=== PATIENT | female | born 1955 ===

== ENCOUNTER 2016-08-05 05:58 | Observation (INO) | payer MEDICAID ==
[2016-08-02 10:05] VITALS: BMI 32.2
[2016-08-05] MEDS ORDERED: Lactated Ringer's 1,000 ML IV ONE ×2 (06:58→08:00)
[2016-08-05] MEDS ORDERED: Propofol 10 mg/ml Inj (20 ML) ONE ×2 (07:04→10:25)
[2016-08-05] MEDS ORDERED: ePHEDrine 50 mg/ml Inj ONE (07:05)
[2016-08-05] MEDS ORDERED: Midazolam 2 MG/2 ML VIAL ONE (07:05)
[2016-08-05] MEDS ORDERED: Neostigmine Methylsulfate 2 MG/2 ML ML IV ONE (07:05)
[2016-08-05] MEDS ORDERED: Succinylcholine 200 mg/10 ml Inj IV ONE (07:05)
[2016-08-05] MEDS ORDERED: Bupivacaine 0.5% Inj(30mL) ONE (07:15)
[2016-08-05] MEDS ORDERED: Rocuronium 10 mg/ml (5 ml) ONE (07:29)
[2016-08-05] MEDS ORDERED: Dexamethasone 4 mg/1 ml ONE (08:24)
[2016-08-05] MEDS ORDERED: SULFANILAMIDE (AVC) VAG CREAM VG ONE (10:17)
[2016-08-05] MEDS ORDERED: Lactated Ringer's 1,000 ML IV SCH (10:51)
[2016-08-05] MEDS ORDERED: HYDROmorphone 0.5 mg/0.5 ml ISec IVP PRN (10:51)
[2016-08-05] MEDS ORDERED: Oxycodone/Acetaminophen 5/325 mg Tab PO PRN (14:32)
[2016-08-05] MEDS: Lactated Ringer's 1,000 ML IV SCH (15:28)
--- NOTE | 2016-08-05 15:35 | OP ---
PROCEDURE DATE: 08/05/2016 PREOPERATIVE DIAGNOSES: Uterine prolapse, cystocele. POSTOPERATIVE DIAGNOSES: Uterine prolapse, cystocele. OPERATION PERFORMED: Robotic hysterectomy, uterosacral ligament plication, cystoscopy, anterior repa ir. SURGEON: Abeba Enciso MD. CHICKEN CLEANER: Dr. Julián Espinoza. ANESTHESIA: General administered by Dr. Bain. ESTIMATED BLOOD LOSS: 50 mL. The patient put out approximately 700 mL of clear urine. The patient received 1400 mL of D5LR intrao peratively. OPERATIVE FINDINGS: A prolapsed uterus, cystocele, dome of the bladder was noted to be intact, bilat eral ureteral efflux of urine. Dr. Espinoza was the assistant paralegal in the procedure. He was helpful in obtaining hemostasis, creating exposur e and closure of the patient. The procedure would not have been possible without his assistance. PROCEDURE: After informed consent was obtained, the patient was taken to the operating room where sp inal anesthesia, the patient was taken to the operating room where general anesthesia was noted to be adequate. The patient was placed in a dorsal lithotomy position. She was prepped and draped in the usual sterile fashion. Attention was then turned to the vagina where the cervix was identified, gra sped with a single-tooth tenaculum and gently dilated with the uterine dilators. A PK uterine manipu lator was inserted into the uterine cavity as a means to manipulate the uterus. Attention was then t urned to the bladder where a Wheeler catheter was inserted to monitor the patient's urinary output. At tention was then turned to the abdomen where approximately 2 cm superior to the umbilicus Marcaine wa s infused and an 8 mm incision was made. A Veress needle was then introduced into the abdominal cavi ty placement was confirmed with a fluid-filled syringe. The abdomen was then insufflated to 50 mmHg. An 8 mm robotic port was introduced into the abdominal cavity and placement was confirmed with the laparoscope. Attention was then turned to 20 cm right and lateral to the umbilicus, Marcaine was inf used and an 8 mm incision was made. The port was introduced into the abdominal cavity. Attention wa s then turned to approximately 10 cm right and lateral to the umbilicus, Marcaine was infused, 8 mm i ncision was made and a robotic port was introduced under direct visualization. Attention was then tu rned to the left side, an 8 mm incision was made and a robotic port was introduced under direct visua lization. Approximately 10 cm left and lateral to the umbilicus, 5 mm incision was made and an tho tant port was introduced into the abdominal cavity. The instruments used for the operation were PK d issector, scissor, ProGrasp, Justin SutureCut The patient was then placed in steep Trendelenburg. The table was lowered and the robot was docked without complication. The instruments were inserted into the abdominal cavity and then proceeded to break scrub and proceed to the surgical console. Attentio n was then turned to the right round ligament, it was serially coagulated and transected with the sci ssors. The bladder flap was created using the PK dissector, undermining the peritoneum, transecting with the scissor down to the level of the VCare cup anteriorly. The uteroovarian ligament was then s erially coagulated and transected with the scissor. The posterior peritoneum was undermined with the PK dissector. The uterosacral ligament was coagulated and the posterior aspect of the peritoneum wa s undermined with the PK dissector and cut with the scissors. The uterine artery was then skeletoniz ed and it was serially coagulated and transected with scissors at the level of the VCare cup. Attent ion was then turned to the left side of the abdomen. The round ligament was identified, serially coa gulated and transected with the scissor. The uteroovarian ligament was then serially coagulated and transected with the scissors. The uterine arteries were skeletonized bilaterally and serially coagul ated with the PK dissector and transected with a scissors. The VCare cup was then identified anterio rly, posteriorly and laterally. A colpotomy was made anteriorly. The cervix and uterus were then am putated from the vagina. The specimen was delivered vaginally. The vaginal cuff was closed with a 2 -0 barbed suture in a running fashion. The uterosacral ligament suspension was performed using Holt- Gregory suture. The ureters were identified bilaterally. Care was taken not to kink the ureters. The r ight uteroovarian ligament was grasped with the Holt-Gregory suture and the vaginal cuff was then ligated to the right uterosacral ligament. A similar procedure was performed on the left. All needles were then removed from the abdomen. The abdomen was copiously irrigated. Irrigant was removed with a camp ction device. Hemostasis was noted. All instruments were then removed from the abdomen. The robot was then docked successfully. Attention was then turned to the vagina. The cystocele was identified and Allis cup was placed approximately 1 cm below the urethral meatus, 2 additional Allis clamps wer e placed along the bladder. The vaginal mucosa was then infiltrated with normal saline. A linear in cision was then made with a scalpel. The bladder was then dissected off the vaginal mucosa using bot h sharp and blunt dissection. The fascia was then identified and the bladder was imbricated with 2-0 Vicryl in an interrupted fashion. Four sutures were placed. The vaginal mucosa was trimmed and the vaginal mucosa was closed with 2-0 Vicryl in a running fashion. Hemostasis was noted. Due to the juan lambert's previous , extensive bladder manipulation, cystoscopy was performed. The dome of t darrion bladder was noted to be intact. No hematuria and there was bilateral efflux of urine. All instru ments were then removed from the vagina. The abdominal incisions were closed with Dermabond and 3-0 Biosyn. All sponge, lap, needle, and instrument counts were correct x 2 and the patient was taken to recovery room in awake and stable condition. Lainey Enciso MD cc: [phone] TT: 08/05/2016 15:34:15 kumar
[2016-08-05] MEDS ORDERED: cefOXitin Sodium 1 GM in Sodium Chloride 0.9% 100 ML IVPB SCH (17:00)
[2016-08-05] MEDS: cefOXitin Sodium 1 GM in Dextrose 5% In Water 50 ML IVPB SCH (18:13)
[2016-08-06] MEDS: cefOXitin Sodium 1 GM in Dextrose 5% In Water 50 ML IVPB SCH ×2 (00:38→08:14)
[2016-08-06 00:52] VITALS: RESP 18
[2016-08-06] MEDS: Lactated Ringer's 1,000 ML IV SCH (05:11)
[2016-08-06 08:19] LABS: BASO % 0.1 % (0.0-2.0); HEMATOCRIT 35.4 % (34.0-47.0); LYMPH # 1.2 K/uL (1.0-4.3); LYMPH % 8.5 % (20.0-40.0); MEAN CELL VOLUME 87.2 fl (81.0-99.0); MEAN CORPUSCULAR HEMOGLOBIN 29.1 pg (27.0-31.0); MEAN CORPUSCULAR HGB CONC 33.4 g/dL (33.0-37.0); MEAN PLATELET VOLUME 7.5 fl (7.2-11.7); MONO % 6.9 % (0.0-10.0); NEUT # 11.9 K/uL (1.8-7.0); NEUT % 84.5 % (50.0-75.0); PLATELET COUNT 274 K/uL (130-400); RED CELL DISTRIBUTION WIDTH 13.6 % (11.5-14.5); WHITE BLOOD COUNT 14.1 K/uL (4.8-10.8)
[2016-08-06 08:40] VITALS: BP 99/60; O2SAT 94
[2016-08-06 11:16] LABS: NEUTROPHIL 79 % (42-75); TOTAL CELLS COUNTED 100
--- NOTE | 2016-08-06 12:26 | CP.PCM.PN ---
Subjective - Date & Time of Evaluation Date of Evaluation: 08/06/16 Time of Evaluation: 12:23 - Subjective Subjective: 60 yo s/p RATAH, BSO and anterior repair, POD #1, recovering well. Patient denies CP, no SOB, no N/V, tolerating PO diet, abdominal pain tolerable with meds, vaginal packing removed and no active vaginal bleeding noted, ambulating well, +flatus, voiding well Objective - Vital Signs/Intake and Output Vital Signs (last 24 hours): Temp Pulse Resp BP Pulse Ox 98.5 F 76 18 99/60 L 94 L 08/06/16 08:25 08/06/16 08:25 08/06/16 08:25 08/06/16 08:25 08/06/16 08:25 Intake and Output: 08/06/16 08/06/16 06:59 18:59 Intake Total 1850 Output Total 1900 Balance -50 - Medications Medications: Current Medications Ondansetron HCl (Zofran Inj) 4 mg IVP ONCE PRN PRN Reason: Nausea/Vomiting Oxycodone/Acetaminophen (Percocet 5/325 Mg Tab) 1 tab PO Q4 PRN PRN Reason: Pain, Mild (1-3) Stop: 08/08/16 14:33 - Labs Labs: 08/06/16 06:00 - Eye Exam Eye Exam: Normal appearance - Respiratory Exam Respiratory Exam: NORMAL BREATHING PATTERN - Cardiovascular Exam Cardiovascular Exam: REGULAR RHYTHM - GI/Abdominal Exam GI & Abdominal Exam: Normal Bowel Sounds Additional comments: soft, non-distended, non-tender, bandages over incision clean/dry, no rebound - Extremities Exam Extremities Exam: Normal Inspection Assessment and Plan - Assessment and Plan (Free Text) Plan: A/P 60 yo s/p RATAH, BSO, anterior repair 1. Patient recovering well, ready for discharge 2. Discharge instructions reviewed with patient
[2016-08-06 12:37] VITALS: PULSE 79; TEMP 99.1
== END 2016-08-06 13:40 | disposition home or self-care (01) ==
LOC: H.OPSURG 05:58 → H.PEDS 14:32 → UNDOADMIN 15:02 → H.PEDS 15:02
PROVIDERS: ADMIT Obstetrics & Gynecology Gynecology; ATTEND Obstetrics & Gynecology Gynecology
DX: N81.4 Uterovaginal prolapse, unspecified (principal); D25.0 Submucous leiomyoma of uterus; N88.8 Other specified noninflammatory disorders of cervix uteri

== ENCOUNTER 2017-08-03 17:18 | Emergency (ER) | payer MEDICAID ==
[2017-08-03 17:19] VITALS: BMI 32.2
--- NOTE | 2017-08-03 19:24 | ED PDOC ---
Upper Extremity Pain/Injury Time Seen by Provider: 08/03/17 18:19 Chief Complaint (Nursing): Finger,Hand,&Wrist Chief Complaint (Provider): Right Hand History Per: Patient History/Exam Limitations: no limitations Onset/Duration Of Symptoms: Other (prior to arrival) Current Symptoms Are (Timing): Still Present Additional Complaint(s): 61 y/o female with no significant pmhx, who presents to the ED for evaluation of right hand dread. Patient states she was pushing a stack of 2 boxes when the top box fell off and her ring and pinky fingers got stuck between the boxes. She states the fingers were a bit bent but she "popped" them back into place. She states she initially felt fine, but is not complaining of localized pain and swelling to the MCP of the right 5th finger. PMD: Yasmani Desai Past Medical History Reviewed: Historical Data, Nursing Documentation, Vital Signs Vital Signs: Last Vital Signs Temp 98.3 F 08/03/17 17:40 Pulse 60 08/03/17 17:40 Resp 16 08/03/17 17:40 BP 107/66 08/03/17 17:40 Pulse Ox 98 08/03/17 17:40 - Medical History PMH: Anemia, Arthritis (JOINT HANDS AND KNEES), Asthma, Bronchitis (JAN 2016), Hypothyroidism Denies: Chronic Kidney Disease - Surgical History Surgical History: No Surg Hx - Family History Family History: States: Unknown Family Hx - Home Medications Home Medications: Ambulatory Orders Medication Instructions Recorded Acetaminophen [Extra Strength 500 mg PO DAILY 08/05/16 Non-Aspirin] DiphenhydrAMINE [Benadryl] 25 mg PO DAILY 08/05/16 Levothyroxine [Synthroid] 50 mcg PO DAILY 08/05/16 Nabumetone [Nabumetone] 500 mg PO DAILY 08/05/16 - Allergies Allergies/Adverse Reactions: Allergies Allergy/AdvReac Type Severity Reaction Status Date / Time carrot Allergy ITCHING Verified 08/03/17 17:40 tomato AdvReac ITCHING Verified 08/03/17 17:40 Review of Systems ROS Statement: Except As Marked, All Systems Reviewed And Found Negative Musculoskeletal: Positive for: Hand Pain (right) Physical Exam - Reviewed Nursing Documentation Reviewed: Yes Vital Signs Reviewed: Yes - Physical Exam Appears: Positive for: Well, Non-toxic, No Acute Distress Head Exam: Positive for: ATRAUMATIC, NORMAL INSPECTION, NORMOCEPHALIC Skin: Positive for: Normal Color, Warm, DRY Eye Exam: Positive for: Normal appearance ENT: Positive for: Normal ENT Inspection Neck: Positive for: Normal, Painless ROM Respiratory: Negative for: Accessory Muscle Use, Respiratory Distress Pulses-Radial (L): 2+ Pulses-Radial (R): 2+ Extremity: Positive for: Normal ROM, Tenderness (5th MCP), Swelling. Negative for: Deformity Neurologic/Psych: Positive for: Alert, Oriented - ECG O2 Sat by Pulse Oximetry: 98 (RA) Pulse Ox Interpretation: Normal Medical Decision Making Medical Decision Makin:41 Plan: --Right hand X-Ray Hand x-ray without acute abnormalities. Scribe Attestation: Documented by Brock Enriquez, acting as a scribe for Vandana Sanon PA-C. Provider Scribe Attestation: All medical record entries made by the Scribe were at my direction and personally dictated by me. I have reviewed the chart and agree that the record accurately reflects my personal performance of the history, physical exam, medical decision making, and the department course for this patient. I have also personally directed, reviewed, and agree with the discharge instructions and disposition. Disposition - Clinical Impression Clinical Impression: Finger sprain - Disposition Disposition: Routine/Home Disposition Time: 19:34 Condition: STABLE Additional Instructions: Ice, elevation, naproxen. Instructions: Finger Sprain (DC) Forms: [employer] (Telugu)
[2017-08-03 20:20] VITALS: BP 110/75; PULSE 71; RESP 15; TEMP 98.2; O2SAT 100
--- NOTE | 2017-08-04 08:27 | RAD ---
PROCEDURE: Right Hand Radiographs. HISTORY: pain MCP, 5th COMPARISON: None. FINDINGS: BONES: No acute fracture or destructive bony lesion identified. JOINTS: No dislocation or subluxation. Advanced degenerative joint disease seen throughout the distal interphalangeal joints, particularly the index and long fingers DIP joints as well as the basal joint with lesser degenerative changes seen throughout the remaining joints of the right hand. SOFT TISSUES: Normal. OTHER FINDINGS: None. IMPRESSION: No acute fracture or dislocation identified. 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 Lesser degenerative changes are seen throughout the remaining joints of the right hand including incidentally the wrist joints.
== END 2017-08-03 20:21 | disposition home or self-care (01) ==
LOC: H.ER 17:18
DX: S63.91XA Sprain of unspecified part of right wrist and hand, initial encounter (principal); W22.8XXA Striking against or struck by other objects, initial encounter; Y92.89 Other specified places as the place of occurrence of the external cause; E03.9 Hypothyroidism, unspecified; J45.909 Unspecified asthma, uncomplicated

== ENCOUNTER 2017-08-08 00:17 | Inpatient (IN) | payer MEDICAID ==
[2017-08-08 00:18] VITALS: BMI 32.2
[2017-08-08] MEDS ORDERED: Sodium Chloride 0.9% 1,000 ML IV STA (03:29)
--- NOTE | 2017-08-08 03:47 | ED PDOC ---
HPI: Abdomen Time Seen by Provider: 08/08/17 03:13 Chief Complaint (Nursing): GI Problem Chief Complaint (Provider): abdominal pain History Per: Patient History/Exam Limitations: no limitations Onset/Duration Of Symptoms: Days (4) Current Symptoms Are (Timing): Still Present Location Of Pain/Discomfort: LLQ, Other (left flank) Quality Of Discomfort: Sharp, "Pain" Associated Symptoms: Nausea, Vomiting Additional History Per: Patient Additional Complaint(s): 61 y/o female presents for evaluation of worsening left-sided abdominal pain x 4 days. Associated nausea, vomiting. Denies fever, chest pain, shortness of breath, palpitations, changes in bowel movements, urinary symptoms. Past Medical History Reviewed: Historical Data, Nursing Documentation, Vital Signs Vital Signs: Last Vital Signs Temp 98.0 F 08/08/17 01:36 Pulse 75 08/08/17 01:36 Resp 16 08/08/17 01:36 BP 172/100 H 08/08/17 01:36 Pulse Ox 97 08/08/17 03:48 - Medical History PMH: Anemia, Arthritis (JOINT HANDS AND KNEES), Asthma, Bronchitis (JAN 2016), Hypothyroidism Denies: Chronic Kidney Disease - Surgical History Surgical History: No Surg Hx - Family History Family History: States: Unknown Family Hx - Home Medications Home Medications: Ambulatory Orders Medication Instructions Recorded Acetaminophen [Extra Strength 500 mg PO DAILY 08/05/16 Non-Aspirin] DiphenhydrAMINE [Benadryl] 25 mg PO DAILY 08/05/16 Levothyroxine [Synthroid] 50 mcg PO DAILY 08/05/16 Nabumetone [Nabumetone] 500 mg PO DAILY 08/05/16 - Allergies Allergies/Adverse Reactions: Allergies Allergy/AdvReac Type Severity Reaction Status Date / Time carrot Allergy ITCHING Verified 08/03/17 17:40 tomato AdvReac ITCHING Verified 08/03/17 17:40 Review of Systems ROS Statement: Except As Marked, All Systems Reviewed And Found Negative Gastrointestinal: Positive for: Nausea, Vomiting, Abdominal Pain Physical Exam - Reviewed Nursing Documentation Reviewed: Yes Vital Signs Reviewed: Yes - Physical Exam Appears: Positive for: Well, Non-toxic, No Acute Distress Head Exam: Positive for: ATRAUMATIC, NORMAL INSPECTION, NORMOCEPHALIC Skin: Positive for: Normal Color Eye Exam: Positive for: Normal appearance ENT: Positive for: Normal ENT Inspection Cardiovascular/Chest: Positive for: Regular Rate, Rhythm Respiratory: Positive for: Normal Breath Sounds Gastrointestinal/Abdominal: Positive for: Bowel Sounds, Soft, Tenderness (left flank) Back: Positive for: Normal Inspection Extremity: Positive for: Normal ROM Neurologic/Psych: Positive for: Alert, Oriented - Laboratory Results Result Diagrams: 08/08/17 04:13 08/08/17 04:13 - ECG O2 Sat by Pulse Oximetry: 97 - Progress ED Course And Treament: labs, urine, CT renal protocol, IV fluids, IV toradol, IV zofran Disposition - Clinical Impression Clinical Impression: Abdominal pain - Disposition Referrals: Yasmani Desai MD [Primary Care Provider] - Disposition Time: 06:00 Condition: STABLE Patient Signed Over To: Biju Piña Handoff Comments: pending CT, re-eval
[2017-08-08 04:17] LABS: BASO # 0.1 K/uL (0.0-0.2); BASO % 0.4 % (0.0-2.0); EOS % 0.4 % (0.0-4.0); HEMOGLOBIN 14.1 g/dL (12.0-16.0); LYMPH # 0.8 K/uL (1.0-4.3); LYMPH % 6.2 % (20.0-40.0); MEAN CORPUSCULAR HEMOGLOBIN 29.5 pg (27.0-31.0); MEAN CORPUSCULAR HGB CONC 33.9 g/dL (33.0-37.0); MEAN PLATELET VOLUME 7.4 fl (7.2-11.7); MONO # 0.8 K/uL (0.0-0.8); MONO % 5.9 % (0.0-10.0); NEUT # 11.3 K/uL (1.8-7.0); NEUT % 87.1 % (50.0-75.0); PLATELET COUNT 283 K/uL (130-400); RBC 4.79 Mil/uL (3.80-5.20)
[2017-08-08 04:21] LABS: SQUAMOUS EPITHIAL 2 /hpf (0-5); URINE BILIRUBIN NEGATIVE (NEGATIVE); URINE BLOOD LARGE (NEGATIVE); URINE CLARITY CLOUDY (Clear); URINE COLOR YELLOW (YELLOW); URINE GLUCOSE (UA) 50 mg/dL (Normal); URINE LEUKOCYTE ESTERASE MOD Leu/uL (Negative); URINE PROTEIN 100 mg/dL (NEGATIVE); URINE UROBILINOGEN 0.2-1.0 mg/dL (0.2-1.0)
[2017-08-08 04:31] LABS: ALB/GLOB RATIO 1.4 (1.0-2.1); ALBUMIN 4.4 g/dL (3.5-5.0); ALT/SGPT 35 U/L (9-52); AST/SGOT 23 U/L (14-36); BLOOD UREA NITROGEN 15 mg/dl (7-17); CALCIUM 8.9 mg/dL (8.4-10.2); GFR AFRICAN-AMERICAN > 60; GFR NON-AFRICAN AMERICAN > 60
[2017-08-08 07:05] LABS: BANDS 2 % (0-2); LYMPHOCYTE 6 % (20-50); MONOCYTE 2 % (0-10); NEUTROPHIL 89 % (42-75); REACTIVE LYMPHOCYTES 1 % (0-0); TOTAL CELLS COUNTED 100
[2017-08-08 07:06] LABS: PLATELET ESTIMATE NORMAL (NORMAL)
--- NOTE | 2017-08-08 07:17 | CT ---
EXAM: CT Abdomen and Pelvis Without Intravenous Contrast EXAM DATE/TIME: 08/08/2017 4:27 AM CLINICAL HISTORY: 61 years old, female; Pain; Abdominal pain; Flank; Left; Additional info: Left flank pain, vomiting TECHNIQUE: Axial computed tomography images of the abdomen and pelvis without intravenous contrast. All CT scans at this facility use one or more dose reduction techniques, viz.: automated exposure control; ma/kV adjustment per patient size (including targeted exams where dose is matched to indication; i.e. head); or iterative reconstruction technique. Coronal and sagittal reformatted images were created and reviewed. COMPARISON: No relevant prior studies available. FINDINGS: Lung bases: Mild dependent changes in both lung bases. ABDOMEN: Liver: Well defined and homogeneous mass in the posterior lateral right upper abdomen, exerting extrinsic mass effect on adjacent liver. Subtle decreased attenuation relative to liver parenchyma. Measures 9 x 3 by 7.5 cm in AP, transverse and craniocaudal dimensions. Tiny calcification at its medial margin. Inseparable from the peritoneum. Liver appears unremarkable. Gallbladder and bile ducts: Unremarkable. No calcified stones. No ductal dilation. Pancreas: Unremarkable. No ductal dilation. Spleen: Unremarkable. No splenomegaly. Adrenals: Unremarkable. No mass. Kidneys and ureters: Moderate left hydronephrosis and hydroureter secondary to a 4 mm calculus at ureterovesical junction. Stomach and bowel: Unremarkable. No dilatation of small or large bowel. No mucosal thickening. PELVIS: Appendix: Normal. Bladder: Unremarkable. No stones. Reproductive: Hysterectomy. ABDOMEN and PELVIS: Intraperitoneal space: See above. No free air. No free fluid or fluid collection. Bones/joints: Spondylosis, degenerative disc disease and facet joint arthrosis lumbar spine. Spinal stenosis at L4-5. Soft tissues: Unremarkable. Vasculature: Unremarkable. No abdominal aortic aneurysm. Lymph nodes: No enlarged lymph nodes. IMPRESSION: 1. Left UVJ calculus with moderate hydronephrosis and hydroureter. 2. Almost isodense mass posterior lateral right upper abdomen with extrinsic mass effect on adjacent right lobe of liver. Differential diagnosis to include peritoneal mass/neoplasm, accessory hepatic lobe, old or subacute hematoma. Recommend additional evaluation with CT with IV contrast or MRI
--- NOTE | 2017-08-08 07:35 | ED PDOC ---
- Laboratory Results Result Diagrams: 08/10/17 06:10 08/10/17 06:10 - ECG O2 Sat by Pulse Oximetry: 97 (RA) Pulse Ox Interpretation: Normal Medical Decision Making Medical Decision Makin:00 AM Patient signed out to me by Dr. Piña pending abdomen results. 0800 CT findings reviewed. Monitoring the patient for pain resolution. 0900 Patient reports recurrent pain. Admit to intractable pain. Dx UTI, obstructive ureteral stones. [address] Miranda covering for Dr Fabi Robledo) for admission. Scribe Attestation: Documented by Shaquille Piña acting as a scribe for Harrison Salvador MD. Scribe Attestation: All medical record entries made by the Scribe were at my direction and personally dictated by me. I have reviewed the chart and agree that the record accurately reflects my personal performance of the history, physical exam, medical decision making, and the department course for this patient. I have also personally directed, reviewed, and agree with the discharge instructions and disposition. Disposition Discussed With : Aj Miranda Doctor Will See Patient In The: Hospital Counseled Patient/Family Regarding: Studies Performed, Diagnosis - Clinical Impression Clinical Impression: Abdominal pain, Ureteral calculus, UTI (urinary tract infection), Abdominal mass - POA Present On Arrival: None - Disposition Disposition: Admitted as In-Patient Disposition Time: 10:00 Condition: FAIR
[2017-08-08] MEDS ORDERED: cefTRIAXone (Rocephin) 1 gm Inj ONE (11:41)
[2017-08-08] MEDS ORDERED: Morphine 4 MG/ML VIAL ONE (11:43)
[2017-08-08] MEDS ORDERED: Potassium Chloride 20 mEq ER Tab PO ONE ×2 (12:50→13:55)
[2017-08-08] MEDS: Sodium Chloride 0.9% 1,000 ML IV SCH ×2 (13:56→21:10)
[2017-08-09] MEDS: Sodium Chloride 0.9% 1,000 ML IV SCH ×2 (01:29→10:31)
[2017-08-09 06:15] LABS: BASO # 0.1 K/uL (0.0-0.2); EOS # 0.3 K/uL (0.0-0.7); EOS % 4.4 % (0.0-4.0); HEMOGLOBIN 11.6 g/dL (12.0-16.0); LYMPH # 1.6 K/uL (1.0-4.3); LYMPH % 24.6 % (20.0-40.0); MEAN CELL VOLUME 87.4 fl (81.0-99.0); MEAN CORPUSCULAR HEMOGLOBIN 28.9 pg (27.0-31.0); MEAN CORPUSCULAR HGB CONC 33.1 g/dL (33.0-37.0); MEAN PLATELET VOLUME 7.4 fl (7.2-11.7); MONO # 0.5 K/uL (0.0-0.8); NEUT # 4.1 K/uL (1.8-7.0); RBC 3.99 Mil/uL (3.80-5.20); RED CELL DISTRIBUTION WIDTH 13.9 % (11.5-14.5); WHITE BLOOD COUNT 6.5 K/uL (4.8-10.8)
[2017-08-09] MEDS: Levothyroxine 50 MCG TAB PO SCH (06:27)
[2017-08-09 06:41] LABS: ALB/GLOB RATIO 1.1 (1.0-2.1); ALBUMIN 3.1 g/dL (3.5-5.0); ALT/SGPT 29 U/L (9-52); AST/SGOT 18 U/L (14-36); BLOOD UREA NITROGEN 14 mg/dl (7-17); CALCIUM 8.2 mg/dL (8.4-10.2); GFR AFRICAN-AMERICAN > 60; GFR NON-AFRICAN AMERICAN > 60
--- NOTE | 2017-08-09 07:38 | CP.PCM.HP ---
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 She denies fever, chills, vesical tenesmus, rectal tenesmus, rectal bleeding, dysuria, abd trauma. Reports one episode of renal colic in 1996 when she passed a renal stone. Patient seen and examined bedside with Dr Miranda. Patient reports she needed toradol last night and notice facial rash and itching. Denies hx/o NSAID meds or toradol rash before. Will stop toradol, will give Percocet for mod pain. Present on Admission - Present on Admission Any Indicators Present on Admission: No History of DVT/PE: No History of Uncontrolled Diabetes: No Urinary Catheter: No Decubitus Ulcer Present: No Review of Systems - Review of Systems All systems: reviewed and no additional remarkable complaints except - Gastrointestinal Gastrointestinal: Abdominal Pain - Genitourinary Additional comments: hematuria Past Patient History - Past Medical History & Family History Past Medical History?: Yes - Past Social History Smoking Status: Never Smoked - CARDIAC Hx Cardiac Disorders: No - PULMONARY Hx Respiratory Disorders: Yes - NEUROLOGICAL Hx Neurological Disorder: Yes Other/Comment: NUMBENESS BOTH HAND FOR CARPAL TUNNEL SYNDROME AND LEFT LEG - HEENT Hx HEENT Problems: Yes Hx Glaucoma: Yes - RENAL Hx Chronic Kidney Disease: No - ENDOCRINE/METABOLIC Hx Endocrine Disorders: Yes Other/Comment: pre DM as per patient - HEMATOLOGICAL/ONCOLOGICAL Hx Anemia: Yes - INTEGUMENTARY Hx Dermatological Problems: No - MUSCULOSKELETAL/RHEUMATOLOGICAL Hx Falls: No - GASTROINTESTINAL Hx Gastrointestinal Disorders: No - GENITOURINARY/GYNECOLOGICAL Hx Genitourinary Disorders: No - PSYCHIATRIC Hx Substance Use: No - SURGICAL HISTORY Hx Surgeries: Yes Other/Comment: X2 - ANESTHESIA Hx Anesthesia: Yes Hx Anesthesia Reactions: Yes (SLOW WAKE UP) Hx Malignant Hyperthermia: No Meds Allergies/Adverse Reactions: Allergies Allergy/AdvReac Type Severity Reaction Status Date / Time carrot Allergy ITCHING Verified 08/03/17 17:40 tomato AdvReac ITCHING Verified 08/03/17 17:40 Physical Exam - Constitutional Appears: Non-toxic, No Acute Distress - Head Exam Head Exam: ATRAUMATIC, NORMOCEPHALIC - Eye Exam Eye Exam: Normal appearance - ENT Exam ENT Exam: Mucous Membranes Moist - Neck Exam Neck exam: Positive for: Normal Inspection - Respiratory Exam Respiratory Exam: Clear to Auscultation Bilateral, Rhonchi. absent: Rales, Wheezes - Cardiovascular Exam Cardiovascular Exam: REGULAR RHYTHM, +S1, +S2 - GI/Abdominal Exam GI & Abdominal Exam: Normal Bowel Sounds, Soft. absent: Guarding, Rebound, Tenderness - Extremities Exam Extremities exam: Positive for: normal inspection. Negative for: pedal edema Additional comments: right hand with wrist splint 2/2 right little finger sprain. - Back Exam Back exam: NORMAL INSPECTION - Neurological Exam Neurological exam: Alert, Oriented x3 - Psychiatric Exam Psychiatric exam: Normal Affect, Normal Mood - Skin Skin Exam: Intact Results - Vital Signs Recent Vital Signs: Last Vital Signs Temp 98.1 F 08/09/17 00:00 Pulse 61 08/09/17 00:00 Resp 18 08/09/17 00:00 BP 103/67 08/09/17 00:00 Pulse Ox 97 08/09/17 00:00 - Labs Result Diagrams: 08/09/17 05:50 08/09/17 05:50 Labs: Laboratory Results - last 24 hr 08/09/17 08/09/17 05:50 05:50 WBC 6.5 RBC 3.99 Hgb 11.6 L D Hct 34.9 MCV 87.4 MCH 28.9 MCHC 33.1 RDW 13.9 Plt Count 231 MPV 7.4 Neut % (Auto) 62.0 Lymph % (Auto) 24.6 Bullock % (Auto) 8.0 Eos % (Auto) 4.4 H Baso % (Auto) 1.0 Neut # (Auto) 4.1 Lymph # (Auto) 1.6 Bullock # (Auto) 0.5 Eos # (Auto) 0.3 Baso # (Auto) 0.1 Sodium 141 Potassium 3.6 Chloride 106 Carbon Dioxide 23 Anion Gap 16 BUN 14 Creatinine 0.5 L Est GFR ( Amer) > 60 Est GFR (Non-Af Amer) > 60 Random Glucose 97 Calcium 8.2 L Total Bilirubin 1.1 AST 18 ALT 29 Alkaline Phosphatase 63 Total Protein 5.8 L Albumin 3.1 L D Globulin 2.7 Albumin/Globulin Ratio 1.1 Assessment & Plan - Assessment and Plan (Free Text) Plan: Assessment/Plan 1) Left Ureteral Stone Ct Abd: 4 mm left ureteral stone with mod hydronephrosis -IV fluids, pain med, Flomax 0.4 mg daily , rocephin -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 2) Abdominal pain -secondary to renal colic ( ureteral stone) -resolving -Toradol stopped. Mild allergic reaction noted after 3rd dose. -Percocet mod pain, morhine sev pain. 3) Abdominal mass -Accidental finding on CT ad: Isodense mass post lat right upper abdomen with extrinsic mass effect on adjacent right lobe of liver aprox [address] abd PO.IV contrast -denies hx/o abd pain before, general symptoms. No hx/o malignancy -may need GI and IR biopsy -f/u CT Abd with Po / IV contrast 3) Hypothyroidism c/w home medications 4) Hematuria -secondary to ureteral stone -c/w ceftriaxone 5) DVT Prophylaxis SCD. Hematuria and may need abd mass biopsy
[2017-08-09] MEDS ORDERED: Iohexol 240 (50 ml) PO ONE (10:17)
[2017-08-09] MEDS ORDERED: Iohexol 300 100 ML IJ ONE (14:35)
--- NOTE | 2017-08-09 15:28 | CT ---
PROCEDURE: CT Abdomen and Pelvis with contrast HISTORY: RUL mass adjacent to liver COMPARISON: August 08, 2017. Study completed 05:27. TECHNIQUE: Contrast dose: 95 cc Omnipaque 300 Radiation dose: Total exam DLP = 564.39 mGy-cm. This CT exam was performed using one or more of the following dose reduction techniques: Automated exposure control, adjustment of the mA and/or kV according to patient size, and/or use of iterative reconstruction technique. FINDINGS: LOWER THORAX: Subsegmental infiltrates/basilar atelectasis right lower lobe. This is a progressive finding. LIVER: Unremarkable. No gross lesion or ductal dilatation. Confirmation of perihepatic mass interposed between the right lobe of the liver in the abdominal wall. Mean Hounsfield units on the unenhanced study performed 939528.1. Mean Hounsfield units on the current contrast-enhanced study 54.9. The mass measures 7.5 cm in length. Orthogonal measurements on axial series 3 42 2.8 x 9.0 cm. This most likely represents a complex fluid collection. The mass is amenable to biopsy if clinically indicated. GALLBLADDER AND BILE DUCTS: Unremarkable. PANCREAS: Unremarkable. No gross lesion or ductal dilatation. SPLEEN: Unremarkable. ADRENALS: Unremarkable. No mass. KIDNEYS AND URETERS: Right kidney: Unremarkable. No hydronephrosis. No solid mass. Left kidney: Interval improvement in left hydronephrosis and hydroureter. Left ureterovesical junction stone identified on the prior study has passed, it is no longer identified. VASCULATURE: Unremarkable. No aortic aneurysm. BOWEL: Unremarkable. No obstruction. No gross mural thickening. APPENDIX: Normal appendix. PERITONEUM: Trace free fluid identified in the pelvis/cul de sac. LYMPH NODES: Unremarkable. No enlarged lymph nodes. BLADDER: Unremarkable. REPRODUCTIVE: Unremarkable. BONES: No acute fracture. OTHER FINDINGS: None. IMPRESSION: 1. Well-circumscribed perihepatic mass/complex fluid collection unchanged compared to the prior study August 08, 2017. 2. Recently passed left ureterovesical junction calculus. Interval improvement in left hydronephrosis and hydroureter
[2017-08-10] MEDS: Oxycodone/Acetaminophen 5/325 mg Tab PO PRN ×2 (00:05→23:09)
[2017-08-10] MEDS: Levothyroxine 50 MCG TAB PO SCH (06:46)
[2017-08-10 07:00] LABS: HEMOGLOBIN 11.9 g/dL (12.0-16.0); MEAN CELL VOLUME 87.2 fl (81.0-99.0); MEAN CORPUSCULAR HEMOGLOBIN 29.2 pg (27.0-31.0); MEAN CORPUSCULAR HGB CONC 33.4 g/dL (33.0-37.0); RBC 4.08 Mil/uL (3.80-5.20); RED CELL DISTRIBUTION WIDTH 13.9 % (11.5-14.5); WHITE BLOOD COUNT 5.7 K/uL (4.8-10.8)
[2017-08-10 07:21] LABS: BLOOD UREA NITROGEN 10 mg/dl (7-17); CALCIUM 8.6 mg/dL (8.4-10.2); GFR AFRICAN-AMERICAN > 60; GFR NON-AFRICAN AMERICAN > 60
--- NOTE | 2017-08-10 08:17 | CP.PCM.PN ---
Subjective - Date & Time of Evaluation Date of Evaluation: 08/10/17 Time of Evaluation: 07:20 - Subjective Subjective: Patient seen and examined bedside with Dr Miranda. Patient reports felling better. Reports LLQ abd pain yesterday alleviated with percocet. Denies fever, dysuria, chest pain, SOB. CT Abd Contrast: Perihepatic mass/complex fluid collection Surgery consult called Objective - Vital Signs/Intake and Output Vital Signs (last 24 hours): Temp Pulse Resp BP Pulse Ox 97.5 F L 57 L 18 100/66 96 08/10/17 07:58 08/10/17 07:58 08/10/17 07:58 08/10/17 07:58 08/10/17 07:58 - Medications Medications: Current Medications Acetaminophen (Tylenol 325mg Tab) 650 mg PO Q6 PRN PRN Reason: Pain, Mild (1-3) Acetaminophen (Tylenol 325mg Tab) 650 mg PO Q6 PRN PRN Reason: Fever >100.4 F Atorvastatin Calcium (Lipitor) 40 mg PO HS [facility] Last Admin: 08/09/17 21:28 Dose: Not Given Ceftriaxone Sodium 1 gm/ (Sodium Chloride) 100 mls @ 100 mls/hr IVPB DAILY [facility] PRN Reason: Protocol Last Admin: 08/09/17 10:30 Dose: 100 mls/hr Levothyroxine Sodium (Synthroid) 50 mcg PO DAILY@0630 [facility] Last Admin: 08/10/17 06:46 Dose: 50 mcg Loratadine (Claritin) 10 mg PO DAILY [facility] Last Admin: 08/09/17 09:03 Dose: 10 mg Metformin HCl (Glucophage) 500 mg PO BID [facility] Last Admin: 08/09/17 09:03 Dose: 500 mg Morphine Sulfate (Morphine) 2 mg IVP Q4 PRN PRN Reason: Pain, severe (8-10) Ondansetron HCl (Zofran Inj) 4 mg IVP Q6 PRN PRN Reason: Nausea/Vomiting Oxycodone/Acetaminophen (Percocet 5/325 Mg Tab) 1 tab PO Q6 PRN PRN Reason: Pain, moderate (4-7) Stop: 08/12/17 11:45 Last Admin: 08/10/17 00:05 Dose: 1 tab Tamsulosin HCl (Flomax) 0.4 mg PO DAILY [facility] Last Admin: 08/09/17 09:03 Dose: 0.4 mg Tamsulosin HCl (Flomax) 0.4 mg PO DAILY [facility] Last Admin: 08/09/17 11:39 Dose: Not Given - Labs Labs: 08/10/17 06:10 08/10/17 06:10 - Constitutional Appears: Non-toxic, No Acute Distress - Head Exam Head Exam: ATRAUMATIC, NORMOCEPHALIC - Eye Exam Eye Exam: Normal appearance - ENT Exam ENT Exam: Mucous Membranes Moist - Respiratory Exam Respiratory Exam: Clear to Ausculation Bilateral. absent: Rales, Rhonchi, Wheezes - Cardiovascular Exam Cardiovascular Exam: REGULAR RHYTHM, +S1, +S2 - GI/Abdominal Exam GI & Abdominal Exam: Soft, Normal Bowel Sounds. 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 Will need Flomax custodial after discharge. 2) Abdominal pain -secondary to renal colic ( ureteral stone) -resolving -Toradol stopped. Mild allergic reaction noted after 3rd dose. -Percocet mod pain, morphine sev pain. 3) Abdominal mass -Accidental finding on CT ad: Isodense mass post lat right upper abdomen with extrinsic mass effect on adjacent right lobe of liver aprox [address] abd PO.IV contrast -CT Abd Contrast: Perihepatic mass/complex fluid collection -denies hx/o abd pain before, general symptoms. No hx/o malignancy -Surgery consult suggested. Will need IR intervention -f/u CT Abd with Po / IV contrast 4) Hypothyroidism c/w home medications 5) Hematuria -secondary to ureteral stone -c/w ceftriaxone -f/u urine cx results 6) DVT Prophylaxis SCD. Hematuria and may need abd mass biopsy
--- NOTE | 2017-08-10 09:15 | CON ---
DATE OF CONSULTATION: 08/09/2017 COMPREHENSIVE UROLOGIC CONSULTATION REASON FOR CONSULTATION: Left renal colic and left 4 mm distal ureteral stone. HISTORY OF PRESENT ILLNESS: The patient is a 61-year-old female from [facility], who presents to [facility] ER with a complaint of left abdominal pain and left flank pain for few days prior to admission and an abdominopelvic CT stone survey showed a distal left UVJ 4-mm calculus with moderate hydronephrosis and hydroureter and an almost isodense mass posterolateral right upper abdomen with extrinsic mass effect on the adjacent right lobe of the liver and the differential diagnosis to include peritoneal mass/neoplasm, accessory hepatic lobe, old subacute hematoma, and an additional CT with IV contrast, which is currently being ordered for further evaluation. The patient denies any type of trauma to suggest hematoma. She has a prior history of kidney stones, which she passed in 1986 and had no further episodes until the present time. 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 ALLERGIES: HER ONLY KNOWN ALLERGY MAY BE TO TORADOL WHEN SHE DEVELOP SOME SORT OF FACIAL RASH AFTER RECEIVING TORADOL AND ALSO PRIOR HISTORY OF HAVING A FACIAL RASH AFTER BEING GIVEN A PAIN MEDICATION. SOCIAL HISTORY: She is a very rare social drinker and no history of any tobacco use. PHYSICAL EXAMINATION: GENERAL: She is a well-developed and well-nourished female. She is alert and oriented. HEENT: Grossly within normal limits. NECK: Supple. Thyroid not palpable. ABDOMEN: Soft, currently not distended. She has some 1 to 2+ left CVA tenderness. No right CVA tenderness and no suprapubic tenderness. EXTREMITIES: She has full range of motion of both upper and lower extremities. LABORATORY EVALUATION: On admission, her WBC count was 13 and now today 08/09/2017 is 6.5 on IV Rocephin. She has left flank pain, left abdominal pain, and left renal colic. The patient is currently on Flomax 0.4 mg daily to try to help pass her left UVJ stone. Her current CBC shows WBC count of 6.5, hemoglobin of 11.6, hematocrit of 34.9, and platelet count of 231,000. Chem profile today shows sodium of 141, potassium 3.6, chloride of 106, CO2 of 23, BUN and creatinine of 14 and 0.5 respectively with GFR of greater than 60. Random glucose was 97, calcium 8.2, total bilirubin 1.1, AST 18, ALT 29, and alkaline phosphatase . Urinalysis on admission 08/08/2017, showed the color was yellow, appearance was cloudy, pH of 5, specific gravity 1.023, protein was 100, glucose 50, trace ketones, large blood, nitrite negative, bilirubin negative, leukocyte esterase moderate, 218 rbc's, 37 wbc's per high-power field, suggestive of possible UTI. The patient improved on IV Rocephin. DIAGNOSTIC IMPRESSION: For this patient is a distal 4 mm left ureterovesical junction stone with mild left hydronephrosis. PLAN: 1. Plan is to allow to try to pass the stone on her own, the patient absolutely wants to try to do this on her own because she has passed a stone in the past. 2. Right upper abdominal mass to be evaluated. River Ivan MD [email or web address]
[2017-08-10 15:39] VITALS: O2SAT 95
--- NOTE | 2017-08-10 17:14 | CP.PCM.CON ---
History of Present Illness - History of Present Illness History of Present Illness: Surgery 61 F w PMH of nephrolithiasis , asthma, DM and hypothyroidism came with LLQ pain and hematuria. Surgery is consulted for incidental finding of perihepatic mass on CT scan. Pt reports that she was lifting a box about a week ago and injured her R finger. Denies injury to her chest or abdomen. Denies Fever, nausea, vomiting, diarrhea, hematemesis, SOB, CP, RUQ abd pain, skin changes, bruising. Her abd pain is located on LLQ and radiates to her L back. Also reports hematuria. Pt had h/o nephrolithiasis in the past. Pt doesn't take blood thinner but takes [address] of the abd shows well circumscribed perihepatic mass 9x3cm adjacent to chest wall. Houndsfieds unit is 55 incidative of possible hematoma. No change of size noted from CT from the day before. No other CT A/P in the past to compare. Hgb is 12. WBC was 13. LFT is wnl. PMH : see above PSH: None Review of Systems - Review of Systems Review of Systems: See HPI Past Patient History - Past Medical History & Family History Past Medical History?: Yes - Past Social History Smoking Status: Never Smoked - CARDIAC Hx Cardiac Disorders: No - PULMONARY Hx Respiratory Disorders: Yes - NEUROLOGICAL Hx Neurological Disorder: Yes Other/Comment: NUMBENESS BOTH HAND FOR CARPAL TUNNEL SYNDROME AND LEFT LEG - HEENT Hx HEENT Problems: Yes Hx Glaucoma: Yes - RENAL Hx Chronic Kidney Disease: No - ENDOCRINE/METABOLIC Hx Endocrine Disorders: Yes Other/Comment: pre DM as per patient - HEMATOLOGICAL/ONCOLOGICAL Hx Anemia: Yes - INTEGUMENTARY Hx Dermatological Problems: No - MUSCULOSKELETAL/RHEUMATOLOGICAL Hx Falls: No - GASTROINTESTINAL Hx Gastrointestinal Disorders: No - GENITOURINARY/GYNECOLOGICAL Hx Genitourinary Disorders: No - PSYCHIATRIC Hx Substance Use: No - SURGICAL HISTORY Hx Surgeries: Yes Other/Comment: X2 - ANESTHESIA Hx Anesthesia: Yes Hx Anesthesia Reactions: Yes (SLOW WAKE UP) Hx Malignant Hyperthermia: No Meds Allergies/Adverse Reactions: Allergies Allergy/AdvReac Type Severity Reaction Status Date / Time carrot Allergy ITCHING Verified 08/03/17 17:40 tomato AdvReac ITCHING Verified 08/03/17 17:40 - Medications Medications: Current Medications Acetaminophen (Tylenol 325mg Tab) 650 mg PO Q6 PRN PRN Reason: Pain, Mild (1-3) Acetaminophen (Tylenol 325mg Tab) 650 mg PO Q6 PRN PRN Reason: Fever >100.4 F Atorvastatin Calcium (Lipitor) 40 mg PO HS [facility] Last Admin: 08/09/17 21:28 Dose: Not Given Levothyroxine Sodium (Synthroid) 50 mcg PO DAILY@0630 [facility] Last Admin: 08/10/17 06:46 Dose: 50 mcg Loratadine (Claritin) 10 mg PO DAILY [facility] Last Admin: 08/10/17 09:41 Dose: 10 mg Metformin HCl (Glucophage) 500 mg PO BID [facility] Last Admin: 08/09/17 09:03 Dose: 500 mg Morphine Sulfate (Morphine) 2 mg IVP Q4 PRN PRN Reason: Pain, severe (8-10) Ondansetron HCl (Zofran Inj) 4 mg IVP Q6 PRN PRN Reason: Nausea/Vomiting Oxycodone/Acetaminophen (Percocet 5/325 Mg Tab) 1 tab PO Q6 PRN PRN Reason: Pain, moderate (4-7) Stop: 08/12/17 11:45 Last Admin: 08/10/17 00:05 Dose: 1 tab Tamsulosin HCl (Flomax) 0.4 mg PO DAILY [facility] Last Admin: 08/10/17 09:41 Dose: 0.4 mg Tamsulosin HCl (Flomax) 0.4 mg PO DAILY [facility] Last Admin: 08/10/17 09:41 Dose: Not Given Physical Exam - Constitutional Appears: No Acute Distress - Head Exam Head Exam: ATRAUMATIC, NORMAL INSPECTION, NORMOCEPHALIC - Eye Exam Eye Exam: EOMI, Normal appearance, PERRL Pupil Exam: NORMAL ACCOMODATION, PERRL - ENT Exam ENT Exam: Mucous Membranes Moist, Normal Exam - Neck Exam Neck exam: Positive for: Normal Inspection - Respiratory Exam Respiratory Exam: Clear to Auscultation Bilateral, NORMAL BREATHING PATTERN - Cardiovascular Exam Cardiovascular Exam: REGULAR RHYTHM - GI/Abdominal Exam GI & Abdominal Exam: Normal Bowel Sounds, Soft, Tenderness. absent: Distended, Firm, Guarding, Hernia, Mass, Organomegaly, Pulsatile Mass, Rebound, Rigid Additional comments: LLQ TTP - Exam Exam: NORMAL INSPECTION - Extremities Exam Additional comments: R hand with splint.R arm sling - Back Exam Back exam: NORMAL INSPECTION - Neurological Exam Neurological exam: Alert, CN II-XII Intact, Normal Gait, Oriented x3, Reflexes Normal - Psychiatric Exam Psychiatric exam: Normal Affect, Normal Mood - Skin Skin Exam: Dry, Intact, Normal Color, Warm Results - Vital Signs Recent Vital Signs: Last Vital Signs Temp 98.2 F 08/10/17 15:39 Pulse 52 L 08/10/17 15:39 Resp 18 08/10/17 15:39 BP 96/67 L 08/10/17 15:39 Pulse Ox 95 08/10/17 15:39 - Labs Result Diagrams: 08/10/17 06:10 08/10/17 06:10 Labs: Laboratory Results - last 24 hr 08/10/17 08/10/17 06:10 06:10 WBC 5.7 RBC 4.08 Hgb 11.9 L Hct 35.6 MCV 87.2 MCH 29.2 MCHC 33.4 RDW 13.9 Plt Count 243 Sodium 140 Potassium 3.6 Chloride 105 Carbon Dioxide 25 Anion Gap 14 BUN 10 Creatinine 0.5 L Est GFR ( Amer) > 60 Est GFR (Non-Af Amer) > 60 Random Glucose 96 Calcium 8.6 Assessment & Plan - Assessment and Plan (Free Text) Assessment: Perihepatic lesion likely hematoma CT of the abd shows well circumscribed perihepatic complex fluids filled lesion 9x3cm adjacent to chest wall. Houndsfieds unit is 55 incidative of possible hematoma. Hgb is 12. WBC was 13. LFT is wnl. MOnitor hgb Serial abd exam Medical management ORIANA Dowling
[2017-08-11] MEDS: Levothyroxine 50 MCG TAB PO SCH (06:33)
--- NOTE | 2017-08-11 07:36 | PN ---
DATE OF FOLLOWUP: 08/10/2017 FOLLOWUP NOTE TIME OF FOLLOWUP: 10:55 a.m. SUBJECTIVE: The patient is resting more comfortably this a.m and she states that the medical staff and nursing staff told her that she passed the stone. She had an abdominopelvic CT done with IV contrast, which showed interval improvement in the left hydronephrosis and hydroureter and the left ureterovesical junction stone identified on the prior study has passed. It is no longer identified. The perihepatic mass interpose between the right lobe of the liver and the abdominal wall showed mean Hounsfield Units, prior to contrast was 55 and the post-contrast enhanced study showed 54.9 Hounsfield Units. The mass measures 7.5 cm in length and this mass most likely represents a complex fluid collection and the mass is amenable to biopsies clinically indicated. The patient did have a full injury where she injured her right fingers. She does not remember injuring her abdomen at that time. UROLOGIC DIAGNOSTIC IMPRESSION: At this time is passed left 4 mm ureterovesical junction stone. PLAN: For this patient regarding Urology is just observation at this time and the patient advised to maintain increased fluid hydration plus . River Ivan MD
--- NOTE | 2017-08-11 08:12 | CP.PCM.PN ---
<Nik Live - Last Filed: 08/12/17 14:00> Subjective - Date & Time of Evaluation Date of Evaluation: 08/11/17 Time of Evaluation: 08:10 - Subjective Subjective: General Surgery Progress Note 61F seen at bedside this AM. Denies any pain to RUQ. Denies any acute overnight events. States that appetite is good. Denies any N/V/F/C/CP/SOB/D Objective - Vital Signs/Intake and Output Vital Signs (last 24 hours): Temp Pulse Resp BP Pulse Ox 98.4 F 62 18 113/64 95 08/11/17 00:12 08/11/17 00:12 08/11/17 00:12 08/11/17 00:12 08/11/17 00:12 - Medications Medications: Current Medications Acetaminophen (Tylenol 325mg Tab) 650 mg PO Q6 PRN PRN Reason: Pain, Mild (1-3) Acetaminophen (Tylenol 325mg Tab) 650 mg PO Q6 PRN PRN Reason: Fever >100.4 F Home Med (Rosuvastatin Calcium [Crestor]) 20 mg PO [facility] Last Admin: 08/10/17 21:32 Dose: 20 mg Levothyroxine Sodium (Synthroid) 50 mcg PO DAILY@0630 [facility] Last Admin: 08/11/17 06:33 Dose: 50 mcg Loratadine (Claritin) 10 mg PO DAILY [facility] Last Admin: 08/10/17 09:41 Dose: 10 mg Metformin HCl (Glucophage) 500 mg PO BID [facility] Last Admin: 08/09/17 09:03 Dose: 500 mg Morphine Sulfate (Morphine) 2 mg IVP Q4 PRN PRN Reason: Pain, severe (8-10) Ondansetron HCl (Zofran Inj) 4 mg IVP Q6 PRN PRN Reason: Nausea/Vomiting Oxycodone/Acetaminophen (Percocet 5/325 Mg Tab) 1 tab PO Q6 PRN PRN Reason: Pain, moderate (4-7) Stop: 08/12/17 11:45 Last Admin: 08/10/17 23:09 Dose: 1 tab Tamsulosin HCl (Flomax) 0.4 mg PO DAILY [facility] Last Admin: 08/10/17 09:41 Dose: 0.4 mg - Labs Labs: 08/10/17 06:10 08/10/17 06:10 - Constitutional Appears: Well, Non-toxic, No Acute Distress - Head Exam Head Exam: ATRAUMATIC, NORMOCEPHALIC - GI/Abdominal Exam GI & Abdominal Exam: Soft. absent: Firm, Guarding, Rigid, Tenderness Additional comments: No POP to RUQ - Neurological Exam Neurological Exam: Alert, Awake, Oriented x3 - Psychiatric Exam Psychiatric exam: Normal Affect, Normal Mood Assessment and Plan - Assessment and Plan (Free Text) Assessment: 61F with perihepatic abscess vs. chronic hematoma formation - asymptomatic Plan: Pt Seen and examined by Dr. Dowling last night Likely old hematoma Asymptomatic at this time No interventions required at this time. Follow up in 3-6 months with PMD for a repeat CT scan. Follow up sooner for CT if pain/jaundice occur Surgery to sign off at this time Please re-consult in future as needed <Tyler Dowling - Last Filed: 08/13/17 14:29> Objective - Vital Signs/Intake and Output Vital Signs (last 24 hours): Temp Pulse Resp BP Pulse Ox 97.8 F 50 L 20 105/62 95 08/11/17 08:40 08/11/17 08:40 08/11/17 08:40 08/11/17 08:40 08/11/17 08:40 - Labs Labs: 08/10/17 06:10 08/10/17 06:10
[2017-08-11 08:40] VITALS: BP 105/62; PULSE 50; RESP 20; TEMP 97.8
--- NOTE | 2017-08-11 08:41 | CP.PCM.DIS ---
Provider - Provider Date of Admission: 08/10/17 17:25 Attending physician: Aj Miranda MD Primary care physician: Yasmani Desai MD Consults: General surgery Dr Dowling Urologist: Dr Ivan Time Spent in preparation of Discharge (in minutes): 20 Hospital Course - Lab Results Lab Results: Micro Results 08/08/17 04:00 Urine,Clean Catch Urine Culture - Final 50-100,000 CFU/ML. MULTIPLE SPECIES. SUGGEST REPEAT SPECIMEN. Most Recent Lab Values WBC 5.7 K/uL (4.8-10.8) 08/10/17 06:10 RBC 4.08 Mil/uL (3.80-5.20) 08/10/17 06:10 Hgb 11.9 g/dL (12.0-16.0) L 08/10/17 06:10 Hct 35.6 % (34.0-47.0) 08/10/17 06:10 MCV 87.2 fl (81.0-99.0) 08/10/17 06:10 MCH 29.2 pg (27.0-31.0) 08/10/17 06:10 MCHC 33.4 g/dL (33.0-37.0) 08/10/17 06:10 RDW 13.9 % (11.5-14.5) 08/10/17 06:10 Plt Count 243 K/uL (130-400) 08/10/17 06:10 MPV 7.4 fl (7.2-11.7) 08/09/17 05:50 Neut % (Auto) 62.0 % (50.0-75.0) 08/09/17 05:50 Lymph % (Auto) 24.6 % (20.0-40.0) 08/09/17 05:50 Coal % (Auto) 8.0 % (0.0-10.0) 08/09/17 05:50 Eos % (Auto) 4.4 % (0.0-4.0) H 08/09/17 05:50 Baso % (Auto) 1.0 % (0.0-2.0) 08/09/17 05:50 Neut # (Auto) 4.1 K/uL (1.8-7.0) 08/09/17 05:50 Lymph # (Auto) 1.6 K/uL (1.0-4.3) 08/09/17 05:50 Coal # (Auto) 0.5 K/uL (0.0-0.8) 08/09/17 05:50 Eos # (Auto) 0.3 K/uL (0.0-0.7) 08/09/17 05:50 Baso # (Auto) 0.1 K/uL (0.0-0.2) 08/09/17 05:50 Neutrophils % (Manual) 89 % (42-75) H 08/08/17 04:13 Band Neutrophils % 2 % (0-2) 08/08/17 04:13 Lymphocytes % (Manual) 6 % (20-50) L 08/08/17 04:13 Reactive Lymphs % 1 % (0-0) H 08/08/17 04:13 Monocytes % (Manual) 2 % (0-10) 08/08/17 04:13 Platelet Estimate Normal (NORMAL) 08/08/17 04:13 Sodium 140 mmol/l (132-148) 08/10/17 06:10 Potassium 3.6 MMOL/L (3.6-5.0) 08/10/17 06:10 Chloride 105 mmol/L (98-107) 08/10/17 06:10 Carbon Dioxide 25 mmol/L (22-30) 08/10/17 06:10 Anion Gap 14 (10-20) 08/10/17 06:10 BUN 10 mg/dl (7-17) 08/10/17 06:10 Creatinine 0.5 mg/dl (0.7-1.2) L 08/10/17 06:10 Est GFR ( Amer) > 60 08/10/17 06:10 Est GFR (Non-Af Amer) > 60 08/10/17 06:10 Random Glucose 96 mg/dL (65-105) 08/10/17 06:10 Calcium 8.6 mg/dL (8.4-10.2) 08/10/17 06:10 Total Bilirubin 1.1 mg/dl (0.2-1.3) 08/09/17 05:50 AST 18 U/L (14-36) 08/09/17 05:50 ALT 29 U/L (9-52) 08/09/17 05:50 Alkaline Phosphatase 63 U/L (38-126) 08/09/17 05:50 Total Protein 5.8 G/DL (6.3-8.2) L 08/09/17 05:50 Albumin 3.1 g/dL (3.5-5.0) L D 08/09/17 05:50 Globulin 2.7 gm/dL (2.2-3.9) 08/09/17 05:50 Albumin/Globulin Ratio 1.1 (1.0-2.1) 08/09/17 05:50 Urine Color Yellow (YELLOW) 08/08/17 04:13 Urine Clarity Cloudy (Clear) 08/08/17 04:13 Urine pH 5.0 (5.0-8.0) 08/08/17 04:13 Ur Specific [place] 1.023 (1.003-1.030) 08/08/17 04:13 Urine Protein 100 mg/dL (NEGATIVE) 08/08/17 04:13 Urine Glucose (UA) 50 mg/dL (Normal) 08/08/17 04:13 Urine Ketones Trace mg/dL (NEGATIVE) 08/08/17 04:13 Urine Blood Large (NEGATIVE) 08/08/17 04:13 Urine Nitrate Negative (NEGATIVE) 08/08/17 04:13 Urine Bilirubin Negative (NEGATIVE) 08/08/17 04:13 Urine Urobilinogen 0.2-1.0 mg/dL (0.2-1.0) 08/08/17 04:13 Ur Leukocyte Esterase Mod Daniela/uL (Negative) 08/08/17 04:13 Urine RBC (Auto) 218 /hpf (0-3) H 08/08/17 04:13 Urine Microscopic WBC 37 /hpf (0-5) H 08/08/17 04:13 Ur Squamous Epith Cells 2 /hpf (0-5) 08/08/17 04:13 - Hospital Course Hospital Course: 61 yo ,f, PMhx/o Hypothyroidism, Asthma, Anemia, Nephrolithiasis 1998 presents c/o LLQ abd pain started 4 days ago, radiated to left groin and left flank, associated with nausea, and gross 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 Patient admitted for left ureteral stone and CT Abd Contrast showed : Perihepatic mass/ complex fluid collection. Surgery consulted. Possible old hematoma related to accidental fall that patient reported when carrying cartoon boxes. No further intervention. Urology consulted. Patient passed stone. Cleared to be discharged with flomax. Patient with gross hematuria 2/2 ureteral lithiasis, received treatment with rocephin. Urine cx contaminated.UTI ruled out so far. Will repeat urine cx out patient. Patient seen and examined bediside with Dr Miranda. Patient cleared to be discharged with flomax. f/u urologist and PMD Diagnosis on discharge 1) Left Ureteral Stone -resolved 2) Abdominal pain -resolved 3) Hypokalemia -resolved -secondary to vomiting 4) Abdominal mass -CT Abd Contrast: Perihepatic mass/complex fluid collection -Surgery consult suggested: old hematoma -f/u with CT abd in 3-6 months 5) Hypothyroidism -chronic Discharge Exam - Head Exam Head Exam: ATRAUMATIC, NORMOCEPHALIC - Eye Exam Eye Exam: Normal appearance - ENT Exam ENT Exam: Mucous Membranes Moist - Respiratory Exam Respiratory Exam: Clear to PA & Lateral. absent: Rales, Rhonchi - Cardiovascular Exam Cardiovascular Exam: REGULAR RHYTHM, +S1, +S2 - GI/Abdominal Exam GI & Abdominal Exam: Normal Bowel Sounds, Soft. absent: Tenderness - Extremities Exam Extremities exam: normal inspection - Neurological Exam Neurological exam: Alert, Normal Gait - Psychiatric Exam Psychiatric exam: Normal Affect, Normal Mood - Skin Skin Exam: Intact Discharge Plan - Discharge Medications Prescriptions: Tamsulosin [Flomax] 0.4 mg PO DAILY #30 cap - Follow Up Plan Condition: FAIR Disposition: HOME/ ROUTINE Instructions: Urinary Obstruction (DC), Acute Abdominal Pain (DC) Additional Instructions: pt. cleared for discharge to Home today by and cont. Flomax- Rx provided f/u with PMD Dr.F Desai in 1 week f/u CT abd pelvis outpatient Referrals: River Ivan MD [Staff Provider] - Yasmani Desai MD [Primary Care Provider] -
--- NOTE | 2017-08-11 08:49 | PQF GENQUE ---
This form is a permanent part of the medical record 08/11/17 Dr. Miranda, Would you please clarify if there is an associated diagnosis or not to go along with the low K level. Admitted with LLQ pain radiating to the L groin and flank associated with nausea , vomiting and gross hematuria. K level 3.2 and KCL 40 meq po given x 1. Repeat K level 3.6. Clarification of your documentation is requested to better reflect the severity of illness and intensity of treatment of your patient. Indicators present PHYSICIAN'S RESPONSE Based on your medical judgment of the clinical indicators outlined above please clarify the following: [] Practitioner response [] If unable to determine, please check the box, sign and date. Present On Admission (POA) Indicator: [] Present at the time of admission [] Not present at the time of admission [] Clinically Undetermined In responding to this query, please exercise your independent professional judgment. The fact that a question is asked does not imply that any particular answer is desired or expected. Thank you for your clarification on this documentation. If you have any questions please call:ext [phone] * Thank you, Shiloh Osorio RN CDMP [facility]
--- NOTE | 2017-08-11 08:56 | PQF GENQUE ---
This form is a permanent part of the medical record 08/11/17 Dr. Miranda, Would you please clarify if the UTI is ruled in or ruled out. with an additional diagnosis of possible UTI based on UA findings. Urine CS 50,000-100,000 multiple species with suggestion of repeat specimen. Rocephin was given in the ER and then discontinued. Admitted with LLQ pain radiating to the L groin and flank associated with nausea , vomiting and gross hematuria. Diagnoses include: distal 4 mm left ureterovesical junction stone with mild left hydronephrosis. Clarification of your documentation is requested to better reflect the severity of illness and intensity of treatment of your patient. Indicators present PHYSICIAN'S RESPONSE Based on your medical judgment of the clinical indicators outlined above please clarify the following: [] Practitioner response [] If unable to determine, please check the box, sign and date. Present On Admission (POA) Indicator: [] Present at the time of admission [] Not present at the time of admission [] Clinically Undetermined In responding to this query, please exercise your independent professional judgment. The fact that a question is asked does not imply that any particular answer is desired or expected. Thank you for your clarification on this documentation. If you have any questions please call:ext [phone] * Thank you, Shiloh Osorio RN CDMP [facility]
== END 2017-08-11 14:55 | disposition home or self-care (01) | DRG 323 ==
LOC: H.ER 00:17 → H.ERHOLD 11:36 → H.MEDSURG1 14:17 → OBSVTOIN 08-10 17:25
PROVIDERS: ADMIT Internal Medicine; ATTEND Internal Medicine
DX: N13.2 Hydronephrosis with renal and ureteral calculous obstruction (principal); E87.6 Hypokalemia; R31.0 Gross hematuria; N39.0 Urinary tract infection, site not specified; R19.01 Right upper quadrant abdominal swelling, mass and lump; E03.9 Hypothyroidism, unspecified; D64.9 Anemia, unspecified; E11.9 Type 2 diabetes mellitus without complications; J45.909 Unspecified asthma, uncomplicated; Z79.82 Long term (current) use of aspirin; Z79.1 Long term (current) use of non-steroidal anti-inflammatories (NSAID); Z87.442 Personal history of urinary calculi